=== PATIENT | male | born 1985 | race Caucasian/White ===

== ENCOUNTER 2018-12-23 19:03 | Emergency (ER) | payer OTHER ==
[2018-12-23 19:08] VITALS: TEMP 97.9; BMI 23.7
--- NOTE | 2018-12-23 20:27 | PDOC ---
History of Present Illness - General Chief Complaint: Laceration Stated Complaint: LACERATION Time Seen by Provider: 12/23/18 20:27 History Source: Patient Exam Limitations: No Limitations - History of Present Illness Initial Comments: 33 year old male with PMH bipolar disorder, anxiety/depression presented to ED for anterior chest wall laceration x2 hours [employer]. 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 Pt denied head injury, LOC, vomiting, neck pain, back pain, abdominal pain, extremity pain, hip pain. Pt reported the wound bled, but resolved on its own, he went home had his spouse clean the wound, but then began to feel pain, then shortness of breath/ lightheadedness because he felt his injury could have been internal from a dirty nail. Pt reported he does not have a tetanus vaccination <10 years. Allergies: NKDA ROS General: denied fever, chills, generalized weakness. HEENT: denied sore throat, rhinorrhea, ear pain. Cardiovascular: denied chest pain, palpitations, syncope, diaphoresis. Respiratory: denied shortness of breath, cough, sputum production, hemoptysis. Gastrointestinal: denied abdominal pain, nausea, vomiting, diarrhea, constipation, blood in stool. Genitourinary: denied dysuria, increased urinary frequency, hematuria, urinary incontinence, flank pain. Back: denied back pain. Musculoskeletal: denied joint pain, muscle pain, joint swelling. Neurological: denied headache, dizziness, numbness, tingling, weakness. Integumentary: admitted to laceration. denied rash, abrasion. Hematologic/Lymphatic: denied bruising or bleeding. PE Constitutional: Well-nourished, Well-developed, appearing stated age. HEENT: head is normocephalic, atraumatic. EOMI. PERRLA. Neck: supple. Full ROM. trachea midline. Cardiovascular: regular heart rhythm. no murmurs. no pericardial friction rub. Respiratory: clear to auscultation bilaterally. no crackles, rhonchi or wheezing. no stridor. Gastrointestinal: soft, nontender. normal bowel sounds. no rebound, guarding, masses. Extremities: peripheral pulses intact. no lower extremity edema. Neurological: CN 2-12 grossly intact. moves all four extremities. Psych: awake, alert, oriented x3. follows commands. answers questions appropriately. Skin: 2 cm linear laceration full thickness without bleeding or FB to the right anterior/lateral chest wall. Past History - Past Medical History Allergies/Adverse Reactions: Allergies Allergy/AdvReac Type Severity Reaction Status Date / Time Fish Containing Products Allergy Verified 12/23/18 19:08 shellfish derived Allergy Verified 12/23/18 19:08 seafood Allergy Severe Difficulty Uncoded 12/23/18 19:08 Breathing Home Medications: Ambulatory Orders Albuterol Sulfate Inhaler - [Ventolin HFA Inhaler -] 1 - 2 inh PO QID PRN #1 inhaler 12/27/17 Albuterol Sulfate Inhaler - [Ventolin Hfa Inhaler -] 2 inh PO Q4H PRN 11/27/18 Budesonide/Formeterol Fumarate [SYMBICORT 80/4.5mcg -] 1 inh PO DAILY 11/27/18 Divalproex [Depakote -] 750 mg PO DAILY 11/27/18 Naloxone HCl [Narcan] 4 mg NS ASDIR PRN #1 spray 11/27/18 Quetiapine Fumarate [Seroquel -] 200 mg PO HS 11/27/18 Quetiapine Fumarate [Seroquel] 100 tab PO ACBK 11/27/18 Sertraline HCl [Zoloft] 100 mg PO DAILY 11/27/18 Buprenorphine/Naloxone [Suboxone 8Mg/2Mg Sl Film -] 1 each SL BID #14 packet MDD 2 11/29/18 Gabapentin [Neurontin -] 300 mg PO BID PRN 12/06/18 Albuterol 0.083% Nebulizer Elli [Ventolin 0.083% Nebulizer Soln -] 1 neb NEB Q4H PRN #30 vial 12/23/18 Albuterol Sulfate Inhaler - [Ventolin HFA Inhaler -] 1 - 2 inh PO Q4H #1 inhaler 12/23/18 Budesonide/Formeterol Fumarate [SYMBICORT 160/4.5mcg -] 2 inh PO DAILY #1 cannister 12/23/18 Divalproex [Depakote -] 250 mg PO BID #9 tablet.ec 12/23/18 Nabumetone 500 mg PO DAILY 10 Days #10 tablet 12/23/18 Nebulizer Accessories [Adult Aerosol Mask] 1 each MC QID PRN #1 each 12/23/18 Nebulizer Accessories [Adult Aerosol Mask] 1 each QID PRN #1 each 12/23/18 Nebulizer [Compact Compressor Nebulizer] 1 each QID PRN #1 each 12/23/18 Nebulizer [Compact Compressor Nebulizer] 1 each QID PRN #1 each 12/23/18 Nortriptyline HCl [Pamelor -] 25 mg PO DAILY #10 capsule 12/23/18 Nortriptyline HCl [Pamelor -] 25 mg PO DAILY #3 capsule 12/23/18 Asthma: Yes Cancer: No Cardiac Disorders: No CVA: No COPD: No CHF: No Dementia: No Diabetes: No GI Disorders: No Disorders: No HTN: No Hypercholesterolemia: No Liver Disease: Yes (hepatitis c treated) Seizures: No Thyroid Disease: No - Suicide/Smoking/Psychosocial Hx Smoking History: Current every day smoker Have you smoked in the past 12 months: Yes Number of Cigarettes Smoked Daily: 3 Information on smoking cessation initiated: No 'Breaking Loose' booklet given: 11/27/18 Hx Alcohol Use: No Drug/Substance Use Hx: Yes Substance Use Type: Heroin, Marijuana Hx Substance Use Treatment: Yes (suboxone) *Physical Exam - Vital Signs Last Vital Signs Temp Pulse Resp BP Pulse Ox 97.9 F 112 H 20 99/67 99 12/23/18 19:05 12/23/18 19:05 12/23/18 19:05 12/23/18 19:05 12/23/18 19:05 Procedures - Laceration/Wound Repair Right Anterior Lateral Chest Wound Length: to 2.5 cm Wound Explored: clean, no foreign body present Wound's Depth, Shape: superficial Irrigated w/ Saline: Yes Anesthesia: 1% Lidocaine Amount of Anesthetic (ccs): 3 Wound Repaired With: Tilly Number of Sutures: 2 Sterile Dressing Applied: Yes Splint Applied: No Medical Decision Making - Medical Decision Making 33 year old male with above PMH presented to ED for laceration to anterior chest wall s/p mechanical fall at work. Initial Vital Signs Temp Pulse Resp BP Pulse Ox 97.9 F 112 H 20 99/67 99 12/23/18 19:05 12/23/18 19:05 12/23/18 19:05 12/23/18 19:05 12/23/18 19:05 Afebrile. Tachycardia - pt is anxious No tachypnea Mild hypotension No hypoxia on room air Labs ordered: none Imaging ordered: CXR Medications ordered: ibuprofen 600 mg PO once, boostrix 12/23/18 21:07 CXR showed no pneumothorax or FB by my and Dr. Navarro's view. -Pending official report. Wound was repaired with 2 roberto after irrigation with normal saline under pressure. See procedure note. Pt reported he was pain free after local anesthetic. 12/23/18 21:17 Vital Signs Pulse Rate 99 H 12/23/18 21:19 Respiratory Rate 16 12/23/18 21:19 Blood Pressure 158/99 12/23/18 21:19 O2 Sat by Pulse Oximetry (%) 97 12/23/18 21:19 Tachycardia improved with local anesthetic and reassurance pt does not have an internal injury. Pt discharged. Pt given return precautions, follow up instructions, wound care instructions. Pt advised to take ibuprofen over the counter for pain. Pt reported that his medications were all in a bag at the job site, and he was told his medications were all thrown away. He requested short term prescriptions until he can call his PCP on Tuesday. Medications: -Albuterol rescue inhaler -Symbicort inhaler -Nabumetone 500 mg PO daily -Depakote 500 mg PO in the AM, 250 mg PO in the evening -Nebulizer machine -Nebulizer mask -Albuterol nebulizer solution 12/24/18 18:56 Follow up: CXR report: Name: [facility] Phys: Kady Whitehead RESIDENT : 1985 Age: 33 Sex: M [facility] [place] Acct: [id number] Loc: [address] Exam Date: 12/23/18 Status: LADAN [facility] Unit Number: [id number] EXAM#: TYPE/EXAM: RESULT: RAD/CHEST PA LAT Chest: Chest wall trauma. Pain. Possible pneumothorax. 2 views of the chest have been submitted. There are clear hyperaerated lungs with sharp costophrenic angles, normal mediastinum and no sign of a gross fracture. Blastic or lytic changes are not seen. There is no sign of infiltrate, failure, foreign body or pneumothorax. If symptoms persist, further imaging may be of help. Impression: No acute chest pathology. No sign of a pneumothorax or foreign body. Reported By: Rajan Boone MD 12/24 0651 *DC/Admit/Observation/Transfer Diagnosis at time of Disposition: Laceration - Discharge Dispostion Disposition: HOME Condition at time of disposition: Improved Decision to Admit order: No - Prescriptions Prescriptions: Albuterol 0.083% Nebulizer Elli [Ventolin 0.083% Nebulizer Soln -] 1 neb NEB Q4H PRN #30 vial PRN Reason: Asthma Albuterol Sulfate Inhaler - [Ventolin HFA Inhaler -] 1 - 2 inh PO Q4H #1 inhaler Budesonide/Formeterol Fumarate [SYMBICORT 160/4.5mcg -] 2 inh PO DAILY #1 cannister Divalproex [Depakote -] 250 mg PO BID #9 tablet.ec Nabumetone 500 mg PO DAILY 10 Days #10 tablet Nebulizer [Compact Compressor Nebulizer] 1 each MC QID PRN #1 each PRN Reason: Asthma Nebulizer [Compact Compressor Nebulizer] 1 each MC QID PRN #1 each PRN Reason: Asthma Nebulizer Accessories [Adult Aerosol Mask] 1 each MC QID PRN #1 each PRN Reason: Asthma Nebulizer Accessories [Adult Aerosol Mask] 1 each MC QID PRN #1 each PRN Reason: Asthma Nortriptyline HCl [Pamelor -] 25 mg PO DAILY #3 capsule Nortriptyline HCl [Pamelor -] 25 mg PO DAILY #10 capsule - Referrals - Patient Instructions Printed Discharge Instructions: DI for Laceration Repair -- Roberto, How to Care for a Surgical Wound-Roberto Additional Instructions: Your Chest X-ray was normal. Take ibuprofen over the counter for your pain. Take as advised on label. Keep the wound covered for 24-48 hours and do not get it wet. After this period change the dressing daily, applying bacitracin/neosporin to the wound and covering with gauze. Return to the Emergency Department in 7-10 days for a wound check and possible staple removal. Return to the Emergency Department immediately for shortness of breath, increasing redness at the wound site, discharge from the wound site, fever, vomiting, chest pain, lightheadedness, or any other new, worsening or concerning symptoms. [place] radiografa de trax era normal. [place] ibuprofeno sin receta mdica para el dolor. Tmelo andie se indica en la etiqueta. Mantenga la herida cubierta alexandru 24-48 horas y no la moje. Despus de lucas perodo, cambie el vendaje diariamente, aplique bacitracina / neosporina en la herida y cubra con na gasa. Regrese al Departamento de Emergencias en 7-10 dumont para un control de heridas y posible extraccin de grapas. Regrese al Departamento de Emergencia de inmediato por falta de aliento, aumento del enrojecimiento en el sitio de la herida, secrecin del sitio de la herida, fiebre, vmitos, dolor en el pecho, aturdimiento o cualquier otro sntoma nuevo, que empeore o se relacione. Print Language: FAROESE - Post Discharge Activity Forms/Work/School Notes: Back to Work
[2018-12-23] MEDS ORDERED: IBUPROFEN 600 MG TABLET (FP) PO ONE ×2 (20:32→20:53)
[2018-12-23] MEDS ORDERED: DIPHTH,PERTUSS(ACELL),TET 0.5 ML DISP.SYRIN IM ONE ×2 (20:32→20:53)
--- NOTE | 2018-12-23 20:43 | PDOC ---
Attending Attestation - Resident Resident Name: CharleyMonoa - ED Attending Attestation I have performed the following: I have examined & evaluated the patient, The case was reviewed & discussed with the resident, I agree w/resident's findings & plan, Exceptions are as noted - HPI HPI: 12/23/18 20:41 33 y/o male c/o pain and bleeding from laceration to the right flank. pt denies fever/chills/sob/cp - Physicial Exam PE: 12/23/18 20:41 alert, awake, well nourished, nad nc, atr perrla, eomi cta rrr +approx 2 cm lac to the 9th intercostal space along the midaxilary line - Medical Decision Making 12/23/18 20:43 33 y/o male with 2cm laceraton. will r/o ptx with chest x-ray. will close primarily. will update tetanus as needed.
[2018-12-23 21:20] VITALS: BP 158/99; PULSE 99
== END 2018-12-23 21:45 | disposition home or self-care (01) ==
LOC: JER 19:03
PROC: 3E0234Z Introduction of Serum, Toxoid and Vaccine into Muscle, Percutaneous Approach (ICD-10-PCS; principal; 2018-12-23)
PROC: 0HQ5XZZ Repair Chest Skin, External Approach (ICD-10-PCS; 2018-12-23)
DX: S21.111A Laceration without foreign body of right front wall of thorax without penetration into thoracic cavity, initial encounter (principal); W18.39XA Other fall on same level, initial encounter; Y93.H9 Activity, other involving exterior property and land maintenance, building and construction; Y92.89 Other specified places as the place of occurrence of the external cause; Y99.0 Civilian activity done for income or pay; J45.909 Unspecified asthma, uncomplicated; F17.210 Nicotine dependence, cigarettes, uncomplicated
CPT/HCPCS: 12001-25; 71046-TC-FY; 90471; 90715; 99282-25

== ENCOUNTER 2019-01-09 20:56 | Emergency (ER) | payer OTHER ==
[2019-01-09] MEDS ORDERED: DEXAMETHASONE LIQUID 0.5 MG/5 ML PO ONE (20:59)
--- NOTE | 2019-01-09 20:59 | PDOC ---
Rapid Medical Evaluation Chief Complaint: Asthma Time Seen by Provider: 01/09/19 20:57 Medical Evaluation: Allergies Allergy/AdvReac Type Severity Reaction Status Date / Time Fish Containing Products Allergy Verified 12/23/18 19:08 shellfish derived Allergy Verified 12/23/18 19:08 seafood Allergy Severe Difficulty Uncoded 12/23/18 19:08 Breathing 01/09/19 20:58 HPI: SOB without help from nebulizer PE:no wheezing very tight breath sounds ORDERS: Duo Nebs and Decadron Discharge Disposition - Diagnosis Asthma exacerbation - Referrals - Patient Instructions - Post Discharge Activity
[2019-01-09 21:01] VITALS: BP 122/63; PULSE 64; TEMP 98.3; BMI 24.6
[2019-01-09] MEDS ORDERED: ALBUTEROL SO4 2.5/IPRATROPIUM 0.5 INH SOL 3 ML VIAL.NEB. NEB ONE ×2 (21:20→21:52)
[2019-01-09] MEDS: ALBUTEROL SO4 2.5/IPRATROPIUM 0.5 INH SOL 3 ML VIAL.NEB. NEB SCH ×4 (21:25→21:54)
[2019-01-09] MEDS ORDERED: methylPREDNISolone NA SUCC 125 MG/2 ML VIAL IM ONE (21:26)
[2019-01-09] MEDS ORDERED: LORazepam 0.5 MG TABLET PO ONE (21:27)
[2019-01-09] MEDS ORDERED: methylPREDNISolone NA SUCC 125 MG/2 ML VIAL ONE (21:30)
[2019-01-09] MEDS ORDERED: LORazepam 0.5 MG TABLET ONE (21:47)
--- NOTE | 2019-01-09 21:52 | PDOC ---
History of Present Illness - General Chief Complaint: Asthma Stated Complaint: ASTHMA PROBLEMS Time Seen by Provider: 01/09/19 20:57 History Source: Patient Exam Limitations: Clinical Condition - History of Present Illness Initial Comments: 01/09/19 21:46 Patient with history of asthma, bipolar and anxiety disorder on Symbicort and albuterol inhaler present with complaint of 2 day history of worsening chest tightness and wheezing not improving with 2 doses of nebulizer treatment today. Patient and mother reported patient was seen in [place] ED 3 days ago for asthma exacerbation and was given nebulizer treatment and steroids in the ED which improved symptoms but was not discharged home on any steroids and symptoms started again the next day which was mild but now has worsening today. Patient also feels this symptoms also exacerbated by anxiety. Patient on Depakote for bipolar disorder reported has not been taking anything for anxiety and does not have a psychologist for follow-up. Denies chest pain, cough, fever , chills, dizziness. Denies any other symptoms Is this a multiple visit Asthma Patient?: No Timing/Duration: other (3 days) Past History - Past Medical History Allergies/Adverse Reactions: Allergies Allergy/AdvReac Type Severity Reaction Status Date / Time Fish Containing Products Allergy Verified 01/09/19 21:00 shellfish derived Allergy Verified 01/09/19 21:00 seafood Allergy Severe Difficulty Uncoded 01/09/19 21:00 Breathing Home Medications: Ambulatory Orders Quetiapine Fumarate [Seroquel] 100 tab PO ACBK 11/27/18 Sertraline HCl [Zoloft] 100 mg PO DAILY 11/27/18 Gabapentin [Neurontin -] 300 mg PO BID PRN 12/06/18 Albuterol 0.083% Nebulizer Elli [Ventolin 0.083% Nebulizer Soln -] 1 neb NEB Q4H PRN #30 vial 12/23/18 Nabumetone 500 mg PO DAILY 10 Days #10 tablet 12/23/18 Nortriptyline HCl [Pamelor -] 25 mg PO DAILY #3 capsule 12/23/18 Divalproex [Depakote -] 250 mg PO HS 01/09/19 Divalproex [Depakote -] 500 mg PO DAILY 01/09/19 Lorazepam [Ativan] 0.5 mg PO DAILY PRN #7 tablet MDD 1 01/09/19 Methylprednisolone [Medrol Dose Jon] 4 mg PO ASDIR #21 tablet 01/09/19 Asthma: Yes Cancer: No Cardiac Disorders: No CVA: No COPD: No CHF: No Dementia: No Diabetes: No GI Disorders: No Disorders: No HTN: No Hypercholesterolemia: No Liver Disease: Yes (hepatitis c treated) Seizures: No Thyroid Disease: No - Suicide/Smoking/Psychosocial Hx Smoking History: Current every day smoker Have you smoked in the past 12 months: Yes Number of Cigarettes Smoked Daily: 3 Information on smoking cessation initiated: No 'Breaking Loose' booklet given: 11/27/18 Hx Alcohol Use: No Drug/Substance Use Hx: Yes Substance Use Type: Heroin, Marijuana Hx Substance Use Treatment: Yes (suboxone) Review of Systems - Review of Systems Able to Perform ROS?: Yes Is the patient limited Taiwanese proficient: No Constitutional: No: Chills, Fever, Malaise HEENTM: No: Symptoms Reported, See HPI, Eye Pain, Blurred Vision, Tearing, Recent change in vision, Double Vision, Cataracts, Ear Pain, Ocular Prothesis, Ear Discharge, Nose Pain, Nose Congestion, Tinnitus, Nose Bleeding, Hearing Loss , Throat Pain, Throat Swelling, Mouth Pain, Dental Problems, Difficulty Swallowing, Mouth Swelling, Other Respiratory: Yes: Symptoms reported, See HPI, Shortness of Breath, Wheezing. No : Cough, Orthopnea, SOB with Exertion, SOB at Rest, Stridor, Productive cough, Hemoptysis, Other Cardiac (ROS): Yes: Symptoms Reported, See HPI, Chest Tightness. No: Chest Pain , Edema, Irregular Heart Rate, Lightheadedness, Palpitations, Syncope, Other ABD/GI: No: Nausea, Vomiting Integumentary: No: Symptoms Reported Neurological: No: Symptoms reported, See HPI Psychiatric: Yes: Anxiety All Other Systems: Reviewed and Negative *Physical Exam - Vital Signs Last Vital Signs Temp Pulse Resp BP Pulse Ox 98.3 F 64 18 122/63 99 01/09/19 20:57 01/09/19 20:57 01/09/19 20:57 01/09/19 20:57 01/09/19 20:57 - Physical Exam Comments: 01/09/19 21:50 GENERAL: Well developed, well nourished. Awake and alert in mild acute distress and anxious. HEENT: Normocephalic, atraumatic. PERRLA, EOMI. No conjunctival pallor. Sclera are non-icteric. Moist mucous membranes. Oropharynx is clear. NECK: Supple. Full ROM. CARDIOVASCULAR: Regular rate and rhythm. No murmurs, rubs, or gallops. Distal pulses are 2+ and symmetric. PULMONARY: mild evidence of respiratory distress. bronchospam with tight wheezing. No rales or rhonchi. ABDOMINAL: Soft. Non-tender. Non-distended. No rebound or guarding. No organomegaly. Normoactive bowel sounds. MUSCULOSKELETAL Normal range of motion at all joints. EXTREMITIES: No cyanosis. No clubbing. No edema. SKIN: Warm and dry. Normal capillary refill. No rashes. NEUROLOGICAL: Alert, awake, appropriate. Gait is normal without ataxia. PSYCHIATRIC: Cooperative. Good eye contact. Appropriate mood General Appearance: Yes: Nourished, Appropriately Dressed, Mild Distress ED Treatment Course - Medications Given in the ED: ED Medications Discontinued Medications Generic Name Dose Route Start Last Admin Trade Name Freq PRN Reason Stop Dose Admin Methylprednisolone Sodium Succinate 125 mg 01/09/19 21:26 01/09/19 21:35 Solu-Medrol - IM 01/09/19 21:27 125 mg ONCE ONE Administration Medical Decision Making - Medical Decision Making 01/09/19 21:47 Patient with history of asthma, bipolar and anxiety disorder on Symbicort and albuterol inhaler present with complaint of 2 day history of worsening chest tightness and wheezing not improving with 2 doses of nebulizer treatment today. Patient and mother reported patient was seen in [place] ED 3 days ago for asthma exacerbation and was given nebulizer treatment and steroids in the ED which improved symptoms but was not discharged home on any steroids and symptoms started again the next day which was mild but now has worsening today. Patient also feels this symptoms also exacerbated by anxiety. Patient on Depakote for bipolar disorder reported has not been taking anything for anxiety and does not have a psychologist for follow-up. Denies chest pain, cough, fever , chills, dizziness. Denies any other symptoms Exam significant for mild tight wheeze with mild respiratory distress. No retractions or accessory muscle use. Patient looking anxious while waiting to be seen. DuoNeb with albuterol and ipratropium bromide ordered and Solu-Medrol 125 mg IM ordered for bronchospasm. Patient had checks x-ray done 3 days ago in [facility] which is negative and no need to repeat chest x-ray. Ativan 0.5 mg by mouth ordered for anxiety. Reassess after neb treatment and so;u-medrol treatment 01/09/19 22:40 Patient with complete improvement of wheezing and bronchospasm post-nebulizer treatment and Solu-Medrol IM injection. Patient feels more relaxed now after 0.5 mg Ativan. Patient is stable for discharge on 5 day course of Medrol Jon with pulmonology follow-up for proper management of asthma. Referral given to psychology for management of his anxiety. Patient is stable for discharge *DC/Admit/Observation/Transfer Diagnosis at time of Disposition: Asthma exacerbation Qualifiers: Asthma severity: mild Asthma persistence: persistent Qualified Code(s): J45.31 - Mild persistent asthma with (acute) exacerbation Anxiety disorder Qualifiers: Anxiety disorder type: unspecified anxiety disorder Qualified Code(s): F41.9 - Anxiety disorder, unspecified - Discharge Dispostion Disposition: HOME Condition at time of disposition: Stable Decision to Admit order: No - Prescriptions Prescriptions: Lorazepam [Ativan] 0.5 mg PO DAILY PRN #7 tablet MDD 1 PRN Reason: Anxiety Methylprednisolone [Medrol Dose Jon] 4 mg PO ASDIR #21 tablet - Referrals Referrals: Rajan Jones MD [Staff Physician] - Camila Ortiz MD [Staff Physician] - - Patient Instructions Printed Discharge Instructions: Asthma -- Adult Additional Instructions: Use home albuterol treatment and take prescribed medication as prescribed. Follow-up referred to pulmonology Dr. Jones as soon as possible for management of recurrent asthma. Follow-up referred psychologist Dr Ortiz for management of anxiety as soon as possible. It is important that you follow-up with referred providers - Post Discharge Activity
== END 2019-01-09 22:41 | disposition home or self-care (01) ==
LOC: JERFT 20:56 → JER 20:56 → JERFT 22:41
PROC: 3E0F7GC Introduction of Other Therapeutic Substance into Respiratory Tract, Via Natural or Artificial Opening (ICD-10-PCS; principal; 2019-01-09)
PROC: 3E023GC Introduction of Other Therapeutic Substance into Muscle, Percutaneous Approach (ICD-10-PCS; 2019-01-09)
DX: J45.31 Mild persistent asthma with (acute) exacerbation (principal); F41.9 Anxiety disorder, unspecified; F31.9 Bipolar disorder, unspecified; Z91.013 Allergy to seafood
CPT/HCPCS: 99281-25

== ENCOUNTER 2019-02-07 23:00 | Emergency (ER) | payer OTHER ==
--- NOTE | 2019-02-08 00:05 | PDOC ---
ED Treatment Course - LABORATORY CBC & Chemistry Diagram: 02/08/19 00:39 02/08/19 00:39 Medical Decision Making - Medical Decision Making 02/08/19 00:04 Patient seen by the advanced practice provider under my direct supervision. Ancillary testing reviewed as necessary. I agree with plan as outlined by the advanced practice provider. Based on history and symptoms patient at risk for cauda equina syndrome versus spinal hematoma MRI not readily available at our facility Case discussed with neurosurgery at [facility] by the MANUELA who will accept the patient for stat MRI via the emergency department with further evaluation to follow 02/08/19 01:32 Discharge - Discharge Information Problems reviewed: Yes Clinical Impression/Diagnosis: Low back pain radiating to both legs Condition: Guarded Disposition: TRANSFER ACUTE CARE/OTHER HOSP - Follow up/Referral - Patient Discharge Instructions - Post Discharge Activity
--- NOTE | 2019-02-08 00:10 | PDOC ---
History of Present Illness - General Chief Complaint: Back Pain Stated Complaint: PAIN Time Seen by Provider: 02/08/19 00:00 - History of Present Illness Initial Comments: 02/08/19 00:06 CHIEF COMPLAINT: back pain HISTORY OF PRESENT ILLNESS: 33 yo M with hx of heroin abuse, hep C, and multiple disc hernations presents to ED with pain to low back and to b/l legs. Patient reports he had an injection to his neck in [facility] at an orthopedist Dr. Overton. Patient reports the pain in his neck resolved but now his lower back and legs is 3 times worse and he feels chills and that he's hot or cold. He states he can barely move his legs and that the pain has progressed quickly throughout his lower body in the past 2 hours. No recent travel or sick contacts. PAST MEDICAL HISTORY: herniated discs FAMILY HISTORY: Denies SOCIAL HISTORY: Denies tobacco, alcohol, illicit drug use. SURGICAL HISTORY: Denies ALLERGIES: fish, seafood REVIEW OF SYSTEMS General/Constitutional: Denies fever or chills. Denies weakness, weight change. HEENT: Denies change in vision. Denies ear pain or discharge. Denies sore throat. Cardiovascular: Denies chest pain or shortness of breath. Respiratory: Denies cough, wheezing, or hemoptysis. Gastrointestinal: Denies nausea, vomiting, diarrhea or constipation. Denies rectal bleeding. Genitourinary: Denies dysuria, frequency, or change in urination. Musculoskeletal: Low back pain radiating to b/l legs, difficulty ambulating. Skin and breasts: Denies rash or easy bruising. Neurologic: Denies headache, vertigo, loss of consciousness, or loss of sensation. Psychiatric: Denies depression or anxiety. PHYSICAL EXAM General Appearance: Pale, diaphoretic. Uncomfortable-appearing. HEENT: EOMI, PERRLA, normal ENT inspection, normal voice, TMs normal, pharynx normal. No conjunctival pallor. No photophobia, scleral icterus. Neck: Supple. Trachea midline. No tenderness, rigidity, carotid bruit, stridor , lymphadenopathy, or thyromegaly. Respiratory/Chest: Lungs CTAB. No shortness of breath, chest tenderness, respiratory distress, accessory muscle use. No crackles, rales, rhonchi, stridor , wheezing, dullness Cardiovascular: RRR. S1, S2. No JVD, murmur, bradycardia, tachycardia. Vascular Pulses: Dorsalis-Pedis (R): 2+, Dorsalis-Pedis (L): 2+ Gastrointestinal/Abdominal: Normal bowel sounds. Abdomen soft, non-distended. No tenderness or rebound tenderness. No organomegaly, pulsatile mass, guarding , hernia, hepatomegaly, splenomegaly. Lymphatic: No adenopathy, tenderness. Musculoskeletal/Extremities: Marked tenderness to lower back, spastic gait. Normal inspection. FROM of all extremities, normal capillary refill. Pelvis Stable. No CVA tenderness. No tenderness to extremities, pedal edema, swelling , erythema or deformity. Integumentary: Appropriate color, dry, warm. 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 Fully oriented, alert. Appropriate mood/affect. No appreciable EOM palsy, facial droop or sensory deficit. A&Ox3, follow commands, respond appropriately CN2-12: conjugate gaze, pupil round, equal and reactive to light. Visual field full to confrontation. EOMI without nystagmus, pursuit is smooth without saccade. Facial sensation and muscle activation intact bilaterally. Hearing intact bilaterally. Palate elevate symmetrically. Shoulder shrug and neck turn full strength. Tongue protrude midline. Motor: LE strength 2/5 bilaterally. UE and 5/5 throughout bilaterally. Muscle tone and bulk normal. L shoulder abd 5/5 elbow F/E 5/5 wrist F/E 5/5 finger F/E 5/5 R shoulder abd 5/5 elbow F/E 5/5 wrist F/E 5/5 finger F/E 5/5 L hip F/E 5/5 knee F/E 5/5 ankle F/E 5/5 R hip F/E 5/5 knee F/E 5/5 ankle F/E 5/5 Sensory: pin prick & temp : decreased to b/l lower extremities. Vibration & propioception: intact bilaterally at 1st MCP and MTP joints. no sensory level noted on trunk Reflex: biceps brachioradialis triceps patellar achilles L 2+ 2+ 2+ 2+ 2+ R 2+ 2+ 2+ 2+ 2+ Plantar reflex downwards bilaterally. Cerebellar: Rapid-alternating movement with regular rhythm without bradykinesia. Fcjhah-kz-pvbx and kefb-kg-ildd intact bilaterally without dysmetria or overshoot. Spastic gait with shuffling. Negative Romberg No involuntary movement noted. No pronator drift. No clonus. 02/08/19 17:32 Past History - Past Medical History Allergies/Adverse Reactions: Allergies Allergy/AdvReac Type Severity Reaction Status Date / Time Fish Containing Products Allergy Verified 01/09/19 21:00 shellfish derived Allergy Verified 01/09/19 21:00 seafood Allergy Severe Difficulty Uncoded 01/09/19 21:00 Breathing Home Medications: Ambulatory Orders Quetiapine Fumarate [Seroquel] 100 tab PO ACBK 11/27/18 Sertraline HCl [Zoloft] 100 mg PO DAILY 11/27/18 Gabapentin [Neurontin -] 300 mg PO BID PRN 12/06/18 Albuterol 0.083% Nebulizer Elli [Ventolin 0.083% Nebulizer Soln -] 1 neb NEB Q4H PRN #30 vial 12/23/18 Nabumetone 500 mg PO DAILY 10 Days #10 tablet 12/23/18 Nortriptyline HCl [Pamelor -] 25 mg PO DAILY #3 capsule 12/23/18 Divalproex [Depakote -] 250 mg PO HS 01/09/19 Divalproex [Depakote -] 500 mg PO DAILY 01/09/19 Lorazepam [Ativan] 0.5 mg PO DAILY PRN #7 tablet MDD 1 01/09/19 Methylprednisolone [Medrol Dose Jon] 4 mg PO ASDIR #21 tablet 01/09/19 Asthma: Yes Cancer: No Cardiac Disorders: No CVA: No COPD: No CHF: No Dementia: No Diabetes: No GI Disorders: No Disorders: No HTN: No Hypercholesterolemia: No Liver Disease: Yes (hepatitis c treated) Seizures: No Thyroid Disease: No - Psycho Social/Smoking Cessation Hx Smoking History: Current every day smoker Have you smoked in the past 12 months: Yes Number of Cigarettes Smoked Daily: 3 'Breaking Loose' booklet given: 11/27/18 Hx Alcohol Use: No Drug/Substance Use Hx: Yes Substance Use Type: Heroin, Marijuana Hx Substance Use Treatment: Yes (suboxone) ED Treatment Course - LABORATORY CBC & Chemistry Diagram: 02/08/19 00:39 02/08/19 00:39 Medical Decision Making - Medical Decision Making 02/08/19 00:20 33 yo M with hx of disc hernationa presents to ED with pain to low back and to b/l legs. Given recent spinal injection, decreased sensation and strength to b/l lower extremities, spastic gait, and difficulty with urination, concern for cauda equina. 02/08/19 00:39 Discussed case with neurosurgery MD Kenny at [facility] who accepts patient to [facility] ED for emergent MRI. Discharge - Discharge Information Problems reviewed: Yes Clinical Impression/Diagnosis: Low back pain radiating to both legs Condition: Guarded Disposition: TRANSFER ACUTE CARE/OTHER HOSP - Admission No - Follow up/Referral - Patient Discharge Instructions - Post Discharge Activity
[2019-02-08] MEDS ORDERED: KETOROLAC TROMETHAMINE 30 MG/1 ML VIAL IVPUSH ONE (00:12)
[2019-02-08 00:17] VITALS: BMI 24.6
[2019-02-08] MEDS ORDERED: KETOROLAC TROMETHAMINE 30 MG/1 ML VIAL ONE (00:50)
[2019-02-08 01:00] LABS: BASO % 0.3 % (0-2.0); HEMATOCRIT 45.4 % (35.4-49); LYMPH % 6.8 % (8-40); MCH 30.8 pg (25.7-33.7); MEAN CELL VOLUME 93.2 fl (80-96); MEAN PLT VOLUME 10.4 fl (7.5-11.1); MONO % 2.8 % (3.8-10.2); NEUT % 90.1 % (42.8-82.8); PLATELET COUNT 223 K/MM3 (134-434); RBC 4.88 M/mm3 (4.00-5.60); RDW 14.2 % (11.9-15.9); WHITE BLOOD COUNT 11.9 K/mm3 (4.0-10.0)
[2019-02-08 01:20] LABS: ALBUMIN 4.4 g/dl (3.4-5.0); BILIRUBIN,TOTAL 0.5 mg/dL (0.2-1); BLOOD UREA NITROGEN 18.3 mg/dL (7-18); CALCIUM 9.7 mg/dL (8.5-10.1); CREATININE 1.1 mg/dL (0.55-1.3); POTASSIUM 4.1 mmol/L (3.5-5.1)
[2019-02-08 01:31] VITALS: BP 130/79; PULSE 87; TEMP 98.8
== END 2019-02-08 01:50 | disposition short-term general hospital (02) ==
LOC: JER 23:00
PROC: 3E0333Z Introduction of Anti-inflammatory into Peripheral Vein, Percutaneous Approach (ICD-10-PCS; principal; 2019-02-07)
DX: M54.5 Low back pain (principal); R26.2 Difficulty in walking, not elsewhere classified; F11.10 Opioid abuse, uncomplicated; Z86.19 Personal history of other infectious and parasitic diseases; Z91.013 Allergy to seafood; Z79.899 Other long term (current) drug therapy; Z87.39 Personal history of other diseases of the musculoskeletal system and connective tissue
CPT/HCPCS: 36415; 80053; 83605; 85025; 87040; 99284-25

== ENCOUNTER 2019-05-26 19:48 | Emergency (ER) | payer OTHER ==
[2019-05-26 20:00] VITALS: TEMP 98; BMI 23.0
[2019-05-26] MEDS ORDERED: FAMOTIDINE 20 MG TABLET ONE (20:39)
[2019-05-26] MEDS ORDERED: FAMOTIDINE 20 MG TABLET PO ONE (20:40)
[2019-05-26] MEDS ORDERED: DEXAMETHASONE SOD PHOSPHATE 10 MG/1 ML VIAL IM ONE (20:40)
[2019-05-26] MEDS ORDERED: ALBUTEROL SO4 2.5/IPRATROPIUM 0.5 INH SOL 3 ML VIAL.NEB. NEB ONE ×2 (20:41→20:48)
[2019-05-26] MEDS ORDERED: DEXAMETHASONE SOD PHOSPHATE 10 MG/1 ML VIAL ONE (20:41)
--- NOTE | 2019-05-26 20:47 | PDOC ---
History of Present Illness - General Chief Complaint: Shortness of Breath Stated Complaint: SOB/ABD PAIN History Source: Patient Exam Limitations: No Limitations - History of Present Illness Initial Comments: 05/26/19 20:39 Patient is a 34 year old male with h/o herniated disc, asthma, bipolar disorder , anxiety, ex-opiate use on methadone complaining of shortness of breath and allergies symptoms started 2 days go. Reports that work is been done in the building and there is a lot of dust in the apartment. Patient states that he is unable to stay in the apartment because of all the smells. Patient was released 1 week ago from the hospital after 21 days from psych PMD: Dr. Fay PMHX: as above PSOCHX: (+) etoh, cig, ex heroine abuse ALL: NKDA GENERAL/CONSTITUTIONAL: [No fever or chills. No weakness. No weight change.] HEAD, EYES, EARS, NOSE AND THROAT: [No change in vision. No ear pain or discharge. No sore throat.] CARDIOVASCULAR: [(+) chest pain or shortness of breath.] RESPIRATORY: [No cough, wheezing, or hemoptysis.] GASTROINTESTINAL: [No nausea, vomiting, diarrhea or constipation. No rectal bleeding.] GENITOURINARY: [No dysuria, frequency, or change in urination.] MUSCULOSKELETAL: [No joint or muscle swelling or pain. No neck or back pain.] SKIN AND BREASTS: [No rash or easy bruising.] NEUROLOGIC: [No headache, vertigo, loss of consciousness, or loss of sensation.] PSYCHIATRIC: [(+) depression or anxiety.] ENDOCRINE: [No increased thirst. No abnormal weight change.] HEMATOLOGIC/LYMPHATIC: [No anemia, easy bleeding, or history of blood clots.] ALLERGIC/IMMUNOLOGIC: [No hives or skin allergy. No latex allergy.] GENERAL: [The patient is awake, alert, and fully oriented, in no acute distress. ] HEAD: [Normal with no signs of trauma.] EYES: [Pupils equal, round and reactive to light, extraocular movements intact, sclera anicteric, conjunctiva clear.] ENT: [Ears normal, nares patent, oropharynx clear without exudates. Moist mucous membranes, uvula midline no swelling] NECK: [Normal range of motion, supple without lymphadenopathy, JVD, or masses.] LUNGS: [Breath sounds equal, clear to auscultation bilaterally. No wheezes, and no crackles.] HEART: [Regular rate and rhythm, normal S1 and S2 without murmur, rub.] ABDOMEN: [Soft, nontender, normoactive bowel sounds. No guarding, no rebound. No masses.] EXTREMITIES: [Normal range of motion, no edema. No clubbing or cyanosis. No cords, erythema, or tenderness.] NEUROLOGICAL: [Cranial nerves II through XII grossly intact. Normal speech, normal gait.] PSYCH: [Normal mood, normal affect.] SKIN: [Warm, Dry, normal turgor, no rashes or lesions noted.] Past History - Past Medical History Allergies/Adverse Reactions: Allergies Allergy/AdvReac Type Severity Reaction Status Date / Time Fish Containing Products Allergy Verified 05/01/19 13:12 shellfish derived Allergy Verified 05/01/19 13:12 seafood Allergy Severe Difficulty Uncoded 05/01/19 13:12 Breathing Home Medications: Ambulatory Orders Divalproex [Depakote -] 250 mg PO TID 01/09/19 Asthma: Yes Cancer: No Cardiac Disorders: No CVA: No COPD: No CHF: No Dementia: No Diabetes: No GI Disorders: No Disorders: No HTN: No Hypercholesterolemia: No Liver Disease: Yes (hepatitis c treated) Seizures: No Thyroid Disease: No - Psycho Social/Smoking Cessation Hx Smoking History: Never smoked Have you smoked in the past 12 months: Yes Number of Cigarettes Smoked Daily: 3 'Breaking Loose' booklet given: 05/01/19 Hx Alcohol Use: No Drug/Substance Use Hx: No Substance Use Type: Heroin, Marijuana Hx Substance Use Treatment: Yes (suboxone) *Physical Exam - Vital Signs Last Vital Signs Temp Pulse Resp BP Pulse Ox 98.0 F 90 19 131/80 99 05/26/19 19:57 05/26/19 19:57 05/26/19 19:57 05/26/19 19:57 05/26/19 19:57 Medical Decision Making - Medical Decision Making 05/26/19 20:39 Patient is a 34 year old male with h/o herniated disc, asthma, bipolar disorder , anxiety, ex-opiate use on methadone complaining of shortness of breath and allergies symptoms started 2 days go. Reports that work is been done in the building and there is a lot of dust in the apartment. Patient states that he is unable to stay in the apartment because of all the smells. He took Benadryl 2 tabs 2 hours prior to presentation. States also his stomach is upset with acid. Symptoms consistent with an anxiety attack. cxr decadron Pepcid reassess EKG reviewed shows sinus rhythm 90, normal axis, no ST-T wave changes Patient in the office requesting to have something to help him calm down. Patient was given Ativan 2 mg p.o.. Patient states that he feels improved I discussed the physical exam findings, ancillary test results and final diagnoses with the patient. I answered all of the patient's questions. The patient was satisfied with the care received and felt comfortable with the discharge plan and treatment plan. The Patient agrees to follow up with the primary care physician within 24-72 hours. Discharge - Discharge Information Problems reviewed: Yes Clinical Impression/Diagnosis: Anxiety Condition: Stable Disposition: HOME - Follow up/Referral Referrals: Camila Ortiz MD [Staff Physician] - - Patient Discharge Instructions Patient Printed Discharge Instructions: DI for Anxiety -- Adult Additional Instructions: Your Discharge Instructions: You must call primary care physician within 24 hours to arrange follow-up. Return to the Emergency Department with any new, persistent or worsening symptoms, for fever, chills, SOB, dizziness or any other concerning changes that may occur. Follow-up with a psychiatrist in 48 hours call for an appointment. - Post Discharge Activity
[2019-05-26] MEDS ORDERED: LORazepam 2 MG TABLET PO ONE (22:10)
[2019-05-26] MEDS ORDERED: LORazepam 0.5 MG TABLET ONE (22:16)
[2019-05-26 22:35] VITALS: BP 125/65; PULSE 87
--- NOTE | 2019-05-29 13:04 | EKG ---
Test Reason : Blood Pressure : / mmHG Vent. Rate : 090 BPM Atrial Rate : 090 BPM P-R Int : 140 ms QRS Dur : 104 ms QT Int : 354 ms P-R-T Axes : 061 080 064 degrees QTc Int : 433 ms NORMAL SINUS RHYTHM NORMAL ECG NO PREVIOUS ECGS AVAILABLE Confirmed by Sridhar aGrcia MD ([id number]) on 05/29/2019 1:03:53 PM Referred By: Confirmed By:Sridhar Garcia MD
== END 2019-05-26 22:39 | disposition home or self-care (01) ==
LOC: JER 19:48
DX: F41.9 Anxiety disorder, unspecified (principal); F31.9 Bipolar disorder, unspecified; J45.909 Unspecified asthma, uncomplicated; F11.20 Opioid dependence, uncomplicated; Z86.19 Personal history of other infectious and parasitic diseases; Z91.013 Allergy to seafood
CPT/HCPCS: 71046-TC-FY; 93005; 93010; 99281-25; J1100

== ENCOUNTER 2019-06-24 23:29 | Emergency (ER) | payer OTHER ==
[2019-06-25 00:28] VITALS: BP 117/70; PULSE 81; TEMP 97.4; BMI 23.0
--- NOTE | 2019-06-25 00:36 | PDOC ---
Attending Attestation - Resident Resident Name: VenkataMatt stapleton - ED Attending Attestation I have performed the following: I have examined & evaluated the patient, The case was reviewed & discussed with the resident, I agree w/resident's findings & plan - HPI HPI: 06/25/19 01:37 Pt comes with anxiety. States that he is SOB. Pt lives with his mom; states that he left her home because she was burning incense and he was having a hard time breathing. SO he tells me that he is homeless. Pt appears well. He is breathing well. - Physicial Exam PE: 06/25/19 01:37 Agree with resident exam. Afebrile VSS lungs clear heart RRR no rashes no fevers - Medical Decision Making 06/25/19 01:08 EKG: NSR 06/25/19 01:58 CXR normal. Stable for d/c home
[2019-06-25] MEDS ORDERED: clonazePAM 0.5 MG TABLET PO ONE (00:40)
[2019-06-25] MEDS ORDERED: clonazePAM 0.5 MG TABLET ONE (00:44)
--- NOTE | 2019-06-25 01:36 | PDOC ---
History of Present Illness - General Chief Complaint: Shortness of Breath Stated Complaint: SHORTNESS OF BREATH Time Seen by Provider: 06/25/19 00:31 History Source: Patient Exam Limitations: No Limitations - History of Present Illness Initial Comments: 06/25/19 01:30 34M with a PMH of herniated disc, asthma, bipolar disorder, anxiety, ex-opiate use on methadone who presents to the ER with complaints of shortness of breath. 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 He states that he is unsure if the shortness of breath is related to his anxiety or his asthma. He tried using his inhaler and felt slightly better. He admits to R upper CP nonradiating but denies fever, chills, nausea, vomiting, cough, diaphoresis, lightheadedness, or family history of ACS. Past History - Past Medical History Allergies/Adverse Reactions: Allergies Allergy/AdvReac Type Severity Reaction Status Date / Time Fish Containing Products Allergy Verified 05/01/19 13:12 shellfish derived Allergy Verified 05/01/19 13:12 seafood Allergy Severe Difficulty Uncoded 05/01/19 13:12 Breathing Home Medications: Ambulatory Orders Divalproex [Depakote -] 250 mg PO TID 01/09/19 Asthma: Yes Cancer: No Cardiac Disorders: No CVA: No COPD: No CHF: No Dementia: No Diabetes: No GI Disorders: No Disorders: No HTN: No Hypercholesterolemia: No Liver Disease: Yes (hepatitis c treated) Seizures: No Thyroid Disease: No - Psycho Social/Smoking Cessation Hx Smoking History: Current some day smoker Have you smoked in the past 12 months: Yes Number of Cigarettes Smoked Daily: 5 Information on smoking cessation initiated: No 'Breaking Loose' booklet given: 05/01/19 Hx Alcohol Use: Yes Drug/Substance Use Hx: Yes Substance Use Type: Heroin, Marijuana Hx Substance Use Treatment: Yes (suboxone) Review of Systems - Review of Systems Able to Perform ROS?: Yes Comments:: 06/25/19 01:34 GENERAL/CONSTITUTIONAL: No fever or chills. No weakness. HEAD, EYES, EARS, NOSE AND THROAT: No change in vision. No ear pain or discharge. No sore throat. CARDIOVASCULAR: + for CP. No palpitations or lightheadedness. RESPIRATORY: + for SOB. No cough, wheezing, or hemoptysis. GASTROINTESTINAL: No abdominal pain, nausea, vomiting, diarrhea, or constipation. GENITOURINARY: No dysuria, frequency, hematuria, or change in urination. MUSCULOSKELETAL: No joint or muscle swelling or pain. No neck or back pain. SKIN: No rash or lesions. NEUROLOGIC: No headache, numbness, tingling, focal weakness, loss of consciousness, or change in strength/sensation. Is the patient limited Japanese proficient: No *Physical Exam - Vital Signs Last Vital Signs Temp Pulse Resp BP Pulse Ox 97.4 F L 81 17 117/70 99 06/24/19 23:30 06/24/19 23:30 06/24/19 23:30 06/24/19 23:30 06/24/19 23:30 - Physical Exam 06/25/19 01:34 GENERAL: Well developed, well nourished. Awake and alert. No acute distress. HEENT: Normocephalic, atraumatic. Hearing grossly normal. Moist mucous membranes. PERRLA, EOMI. No conjunctival pallor. Sclera are non-icteric. NECK: Supple. Full ROM. No JVD. CARDIOVASCULAR: Regular rate and rhythm. No murmurs, rubs, or gallops. PULMONARY: No evidence of respiratory distress. Lungs clear to auscultation bilaterally. No wheezing, rales, or rhonchi. ABDOMINAL: Soft. Non-tender. Non-distended. No rebound or guarding. GENITOURINARY: No CVA tenderness bilaterally. MUSCULOSKELETAL: Normal range of motion at all joints. No bony deformities or tenderness. EXTREMITIES: No cyanosis. No clubbing. No edema. No calf tenderness or swelling. SKIN: Warm and dry. Normal capillary refill. No rashes. No jaundice. NEUROLOGICAL: Alert, awake, appropriate. Cranial nerves 2-12 grossly intact. Normal speech. Gait is normal without ataxia. PSYCHIATRIC: Cooperative. Good eye contact. Slightly flat affect. ED Treatment Course - RADIOLOGY Radiology Studies Ordered: Category Date Time Status CHEST PA & LAT [RAD] Stat Radiology 06/25/19 00:40 Ordered - Medications Given in the ED: ED Medications Discontinued Medications Generic Name Dose Route Start Last Admin Trade Name Freq PRN Reason Stop Dose Admin Clonazepam 0.5 mg 06/25/19 00:40 06/25/19 00:45 Klonopin - PO 06/25/19 00:41 0.5 mg ONCE ONE Administration Medical Decision Making - Medical Decision Making 06/25/19 01:35 34M, well appearing but slightly anxious, who presents to the ER for evaluation of anxiety related CP. XR negative on preliminary read. Given 1mg klonopin for anxiolysis. Pt states he has an appointment with his psychiatrist tomorrow which he will go to. Will d/c with psych f/u. Discharge - Discharge Information Problems reviewed: Yes Clinical Impression/Diagnosis: Anxiety Condition: Good Disposition: HOME - Admission No - Follow up/Referral Referrals: Isaac Polanco [Primary Care Provider] - - Patient Discharge Instructions Patient Printed Discharge Instructions: DI for Anxiety -- Adult Additional Instructions: Your ER visit is not complete until your follow up with your primary care physician. Please follow up with your primary care physician in 1-2 days. Please return to the ER if you have any signs or symptoms of chest pain, shortness of breath, uncontrollable fever, chills, nausea, vomiting, numbness, tingling, or weakness in any part of your body, changes in vision, or slurred speech. Please take your medications as prescribed. Please return to the ER if symptoms persist, worsen, or new symptoms arise. - Post Discharge Activity
--- NOTE | 2019-06-25 09:27 | EKG ---
Test Reason : Blood Pressure : / mmHG Vent. Rate : 063 BPM Atrial Rate : 063 BPM P-R Int : 138 ms QRS Dur : 108 ms QT Int : 378 ms P-R-T Axes : 031 076 060 degrees QTc Int : 386 ms NORMAL SINUS RHYTHM NORMAL ECG WHEN COMPARED WITH ECG OF 26-MAY-2019 19:56, QT HAS SHORTENED Confirmed by Zelalem Lopez ([id number]) on 06/25/2019 9:27:40 AM Referred By: Confirmed By:Zelalem Lopez
== END 2019-06-25 01:48 | disposition home or self-care (01) ==
LOC: JER 23:29
DX: F41.9 Anxiety disorder, unspecified (principal); Z91.013 Allergy to seafood; F17.210 Nicotine dependence, cigarettes, uncomplicated; B19.20 Unspecified viral hepatitis C without hepatic coma; J45.909 Unspecified asthma, uncomplicated; F31.9 Bipolar disorder, unspecified; M51.9 Unspecified thoracic, thoracolumbar and lumbosacral intervertebral disc disorder; F11.21 Opioid dependence, in remission
CPT/HCPCS: 71046-TC-FY; 93005; 93010; 99285-25

== ENCOUNTER 2020-07-22 14:13 | Emergency (ER) | payer OTHER ==
[2020-07-22 14:26] VITALS: BP 122/75; PULSE 90; TEMP 98.2; BMI 26.4
== END 2020-07-22 16:10 | disposition home or self-care (01) ==
LOC: JER 14:13
DX: G51.0 Bell's palsy (principal)
CPT/HCPCS: 99281-25

== ENCOUNTER 2023-09-04 01:12 | Emergency (ER) | payer OTHER ==
[2023-09-04 01:20] VITALS: BP 146/90; PULSE 90; RESP 18; TEMP 97.6; BMI 39.3
[2023-09-04] MEDS ORDERED: AMOX TR/POT CLAV 875MG/125MG TABLETS (FP) ONE (02:48)
[2023-09-04] MEDS: AMOX TR/POT CLAV 875MG/125MG TABLETS (FP) PO ONE (02:49)
[2023-09-04] MEDS ORDERED: BUPIVACAINE HCL/PF 0.5% (5MG/ML) 10 ML VIAL ONE (03:07)
[2023-09-04] MEDS: BUPIVACAINE HCL/PF 0.5% (5 MG/ML) 30 ML VIAL IJ ONE (03:19)
== END 2023-09-04 03:33 | disposition home or self-care (01) ==
LOC: JER 01:12
PROC: 3E0T3BZ Introduction of Anesthetic Agent into Peripheral Nerves and Plexi, Percutaneous Approach (ICD-10-PCS; principal; 2023-09-04)
DX: S02.5XXA Fracture of tooth (traumatic), initial encounter for closed fracture (principal); K08.89 Other specified disorders of teeth and supporting structures; X58.XXXA Exposure to other specified factors, initial encounter
CPT/HCPCS: 99283-25